=== PATIENT | male | born 1965 | race Two or more races ===

== ENCOUNTER 2024-04-13 05:25 | Day surgery (SDC) | payer OTHER ==
[2024-04-12 14:43] VITALS: BP 150/100
[2024-04-12 14:53] LABS: CHOL HDL RATIO 4.8 (0-5.0)
[~2024-04-13] VITALS: Ht 170.2 cm; Wt 99.8 kg
[~2024-04-13 05:25] MED LIST: COZAAR25 MG PO; LEVO-T25 MCG PO
[2024-04-13] MEDS ORDERED: VANCOMYCIN HCL 1,000 MG in 0.9 % SODIUM CHLORIDE 250 ML IR ONE (08:30)
[2024-04-13] MEDS ORDERED: CEFAZOLIN SODIUM 2,000 MG in 0.9 % SODIUM CHLORIDE 100 ML IV ONE (08:30)
[2024-04-13] MEDS ORDERED: ASA325 M1 PO (10:37)
[2024-04-13] MEDS ORDERED: PERCOCET 5-3251 EACH PO (10:37)
[2024-04-13] MEDS ORDERED: CEFADROXIL500 MG PO (10:37)
== END 2024-04-13 13:35 | disposition home or self-care (01) ==
LOC: CIR.AMB 05:25
PROVIDERS: ATTEND Orthopaedic Surgery
DX: S82.841A Displaced bimalleolar fracture of right lower leg, initial encounter for closed fracture (principal); S90.01XA Contusion of right ankle, initial encounter; S43.421A Sprain of right rotator cuff capsule, initial encounter; I10 Essential (primary) hypertension; E03.9 Hypothyroidism, unspecified
CPT/HCPCS: 27814; 27612; L8699